=== PATIENT | female | born 1995 | race Caucasian/White ===

== ENCOUNTER → 2018-03-09 | Outpatient (CLI) | payer MEDICAID | LOC: FIMAGING 07:24 | PROVIDERS: ATTEND Obstetrics & Gynecology | DX: Z34.02 Encounter for supervision of normal first pregnancy, second trimester (principal); Z82.79 Family history of other congenital malformations, deformations and chromosomal abnormalities; Z3A.20 20 weeks gestation of pregnancy ==

== ENCOUNTER → 2018-04-13 | Outpatient (CLI) | payer MEDICAID | LOC: FIMAGING 09:06 | PROVIDERS: ATTEND Obstetrics & Gynecology | DX: O09.892 Supervision of other high risk pregnancies, second trimester (principal); O99.412 Diseases of the circulatory system complicating pregnancy, second trimester; I49.9 Cardiac arrhythmia, unspecified; I77.810 Thoracic aortic ectasia; O35.8XX0 Maternal care for other (suspected) fetal abnormality and damage, not applicable or unspecified; Z95.2 Presence of prosthetic heart valve; Z87.74 Personal history of (corrected) congenital malformations of heart and circulatory system; Z95.3 Presence of xenogenic heart valve; Z95.818 Presence of other cardiac implants and grafts; Z3A.25 25 weeks gestation of pregnancy ==